=== PATIENT | female | born 1945 | race Caucasian/White ===

== ENCOUNTER 2022-03-21 09:34 | Inpatient (IN) ==
[2022-03-21 10:42] LABS: ABS Eosinophils 0.1 10^3/ul (0-0.6); ABS Lymphocytes 0.5 10^3/ul (1.0-4.8); ABS Monocytes 0.3 10^3/ul (0-0.8); Eosinophil % 2.1 %; Hematocrit 42 % (35-47); Hemoglobin 14.3 g/dL (12.0-16.0); Lymphocyte % 10.5 %; Mean Corpuscular HGB Conc 35 g/dL (31-36); Mean Corpuscular Hemoglobin 31 pg (27-31); Mean Corpuscular Volume 89 fL (80-97); Mean Platelet Volume 6.5 fL (7.4-10.4); Nucleated Red Blood Cells % 0.1; Platelet Count 245 10^3/uL (150-450); Red Blood Count 4.66 10^6 /uL (3.70-4.87); Red Cell Distribution Width 14 % (10-15)
[2022-03-21 11:47] LABS: Albumin 3.9 g/dL (3.2-5.2); Calcium 8.9 mg/dL (8.6-10.3); Potassium 3.8 mmol/L (3.5-5.0); Total Bilirubin 0.6 mg/dL (0.2-1.0)
[2022-03-21 11:53] LABS: Albumin/Globulin Ratio 1.6 (1-3); Globulin 2.4 g/dL (2-4); Total Protein 6.3 g/dL (6.4-8.9); eGFR CKD-EPI 90.5 (>60)
[2022-03-21] MEDS ORDERED: NS 0.9% 1000 ml BAG 1,000 ML IV SCH (14:15)
[2022-03-21 14:37] LABS: HDL Cholesterol 79.8 mg/dL
[2022-03-21 16:21] LABS: High Sensitivity Troponin 1 Hr 4 pg/mL (<15)
[2022-03-21] MEDS: Enoxaparin 40 MG/0.4 ML SYR SUBCUT SCH (18:10)
[2022-03-21 19:07] LABS: Urine Appearance Clear; Urine Bilirubin Negative (Negative); Urine Blood 1+ (Negative); Urine Color Yellow; Urine Glucose Negative (Negative); Urine Ketones Negative (Negative); Urine Nitrite Negative (Negative); Urine Protein Negative (Negative); Urine Specific Gravity 1.027 (1.002-1.030); Urine Urobilinogen Negative (Negative)
[2022-03-21 19:10] LABS: Urine Bacteria Absent (Absent); Urine Red Blood Cell 2+(6-10/hpf) (Absent); Urine Squamous Epithelial Cell Present (Absent); Urine White Blood Cell Trace(0-5/hpf) (Absent)
[2022-03-22 05:17] LABS: Hematocrit 38 % (35-47); Hemoglobin 12.8 g/dL (12.0-16.0); Mean Corpuscular HGB Conc 34 g/dL (31-36); Mean Corpuscular Hemoglobin 31 pg (27-31); Mean Corpuscular Volume 90 fL (80-97); Mean Platelet Volume 6.8 fL (7.4-10.4); Platelet Count 236 10^3/uL (150-450); Red Blood Count 4.17 10^6 /uL (3.70-4.87); Red Cell Distribution Width 13 % (10-15)
[2022-03-22 05:49] LABS: Calcium 8.5 mg/dL (8.6-10.3); Magnesium 1.8 mg/dL (1.9-2.7); Potassium 3.5 mmol/L (3.5-5.0); eGFR CKD-EPI 89.8 (>60)
[2022-03-22] MEDS ORDERED: Potassium Chlor 20 meq TAB.ER PO ONE (06:36)
[2022-03-22] MEDS ORDERED: Magnesium Sulfate 2 gm BAG 2 GM/50 ML BAG IVPB ONE (06:36)
[2022-03-22] MEDS ORDERED: Regadenoson 0.4 MG/5 ML SYRINGE ONE (14:31)
[2022-03-22] MEDS: Enoxaparin 40 MG/0.4 ML SYR SUBCUT SCH (16:49)
[2022-03-23 06:52] LABS: Calcium 8.8 mg/dL (8.6-10.3); Magnesium 1.9 mg/dL (1.9-2.7); eGFR CKD-EPI 91.6 (>60)
[2022-03-23] MEDS: Enoxaparin 40 MG/0.4 ML SYR SUBCUT SCH (17:04)
[2022-03-24 06:58] LABS: Hematocrit 40 % (35-47); Hemoglobin 13.5 g/dL (12.0-16.0); Mean Corpuscular HGB Conc 34 g/dL (31-36); Mean Corpuscular Hemoglobin 31 pg (27-31); Mean Corpuscular Volume 90 fL (80-97); Platelet Count 253 10^3/uL (150-450); Red Blood Count 4.42 10^6 /uL (3.70-4.87); Red Cell Distribution Width 13 % (10-15); White Blood Count 6.1 10^3/uL (3.5-10.8)
[2022-03-24 07:13] LABS: Calcium 9.1 mg/dL (8.6-10.3); Magnesium 1.9 mg/dL (1.9-2.7); Potassium 4.1 mmol/L (3.5-5.0); eGFR CKD-EPI 93.6 (>60)
[2022-03-24] MEDS ORDERED: Polyethylene Glycol 3350 17 GM PACKET PO PRN (10:22)
[2022-03-24] MEDS ORDERED: Senna TAB 8.6 mg TAB PO PRN (10:22)
[2022-03-24] MEDS: Enoxaparin 40 MG/0.4 ML SYR SUBCUT SCH (16:46)
[2022-03-25] MEDS ORDERED: NS 0.9% 1000 ml BAG 1,000 ML IV SCH (23:55)
[2022-03-26] MEDS ORDERED: Magnesium Sulfate IV 1GM/100ML 1 GM/100 ML BAG IV ONE (07:40)
[2022-03-26] MEDS ORDERED: Clindamycin 900 MG/D5W BAG 900 MG/50 ML BAG IVPB ONE (08:00)
[2022-03-26] MEDS ORDERED: Lidocaine 1% VIAL 10 MG/ML VIAL ONE ×2 (09:51→09:54)
[2022-03-26] MEDS ORDERED: fentaNYL 100 mcg/2 ml 50 MCG/ML VIAL ONE (09:54)
[2022-03-26] MEDS ORDERED: Midazolam 5 mg/5 ml VIAL 1 mg/ml 5 ml VIAL (5 mg) ONE (09:54)
[2022-03-26 12:15] VITALS: BP 129/68
== END 2022-03-26 17:30 | disposition home or self-care (01) | DRG 244 ==
LOC: ED 09:34 → EDHOLD 14:51 → SUATTDRO 14:51 → MEDTELE 16:09
PROVIDERS: ADMIT Internal Medicine; ATTEND Hospitalist